=== PATIENT | female | born 1950 | race Caucasian/White ===

== ENCOUNTER → 2016-12-30 | Outpatient (CLI) | payer MEDICARE, OTHER | END | disposition home or self-care (01) | LOC: GMAJ 15:55 | PROVIDERS: ATTEND Family Medicine | DX: M06.9 Rheumatoid arthritis, unspecified (principal) ==

== ENCOUNTER 2017-03-16 09:43 | Emergency (ER) | payer MEDICARE, OTHER ==
[2017-03-16] MEDS ORDERED: methylPREDNISolone SODIUM SUC 125 MG/2 ML VIAL IM ONE (09:56)
[2017-03-16] MEDS ORDERED: DOXYCYCLINE HYCLATE CAP 100 MG CAP PO ONE (09:56)
[2017-03-16 09:59] VITALS: BP 175/76; TEMP 98.7
--- NOTE | 2017-03-16 09:59 | ED.PDOC ---
History of Present Illness - General Chief Complaint: Bite: Animal/Insect/Human Stated Complaint: bee sting Time Seen by Provider: 03/16/17 09:45 Source: patient, RN notes reviewed, Vital Signs reviewed, family Exam Limitations: no limitations - History of Present Illness Initial Comments: Patient was stung by a bee 4 days ago just above her hairline at the center of her forehead. The swelling and itching have gotten progressively worse. Her L upper eyelid is nows very swollen. She is also having pain down behind her left ear and side of neck. No SOB or nausea. Timing/Duration: getting worse - 4 days Severity: moderate Improving Factors: nothing - She has not taken anything for this. Worsening Factors: nothing Associated Symptoms: denies symptoms Allergies/Adverse Reactions: Allergies Erythromycin Allergy (Verified 03/16/17 09:58) Penicillins Allergy (Verified 03/16/17 09:58) Home Medications: Ambulatory Orders Acetamin W/Cod #3 Tab [Tylenol #3 Tab] 1 ea PO Q4-6H PRN #20 tab 09/14/14 Cyclobenzaprine HCl [Flexeril] 10 mg PO TID PRN #10 tab 09/14/14 Effexor 75 mg PO DAILY 09/14/14 Naproxen Sodium [Anaprox Ds] 550 mg PO BID #30 tab 09/14/14 Phentermine HCl 37.5 mg PO DAILY 09/14/14 Sulfasalazine 1,000 mg PO BID 09/14/14 Acetaminophen W/ Codeine [Tylenol W/ CODEINE #3] 1 ea PO Q4-6H PRN #14 Ibuprofen [Motrin] 600 mg PO QID PRN #30 tab 03/23/15 Ondansetron [Zofran Odt] 4 mg PO Q8HR PRN #15 tab 03/23/15 Doxycycline Hyclate 100 mg PO BID #14 tab 03/16/17 Epinephrine [Epipen 2-Sotero] 0.3 mg IJ ONCE PRN #1 pack 03/16/17 Review of Systems - Review of Systems Constitutional: States: no symptoms reported. Denies: chills, fever EENTM: States: see HPI, other - L upper eyelid is swollen. Forehead is swollen and mildly erythematous.. Denies: eye pain, nose congestion, throat swelling, mouth swelling Respiratory: States: no symptoms reported Cardiology: States: no symptoms reported Gastrointestinal/Abdominal: States: no symptoms reported Musculoskeletal: States: neck pain - L side extending from behind ear down, Swollen spot on L neck Skin: States: see HPI, other - Forehead and L upper eyelid are mildly erythematous and swollen. Neurological: States: no symptoms reported Past Medical History (General) - Patient Medical History Hx Diabetes: No - Vaccination History Hx Influenza Vaccination: No - Social History Hx Tobacco Use: No Hx Substance Use Treatment: No Family Medical History - Family History Mother Family History: Unknown Living Status: Unknown Physical Exam - Physical Exam General Appearance: Alert, Comfortable, No apparent distress, Well Developed, Well Groomed, Well Hydrated, Well Nourished Eye Exam: left other - Upper eyelid is very edematous, o/w PERRLA Ears, Nose, Throat: hearing grossly normal, other - Swelling and mild erythema middle of forehead and bridge of nose. Neck: full range of motion, supple, lymphadenopathy (L) - posterior, tender lateral - L side of neck from behind ear down Respiratory: no respiratory distress Neurologic: alert, normal mood/affect, oriented x 3 Skin Exam: rash - Mild erythema forehead, bridge of nose and L eyelid Comments: Vital Signs - 24 hr 03/16/17 09:50 Temperature 98.7 F Pulse Rate [ 55 L pulse ox] Respiratory 20 Rate Blood Pressure 175/76 [Left Arm] O2 Sat by Pulse 99 Oximetry Departure - Departure Clinical Impression: Insect bites Allergic reaction to bee sting Qualifiers: Encounter type: initial encounter Injury intent: accidental or unintentional Qualified Code(s): T63.441A - Toxic effect of venom of bees, accidental ( unintentional), initial encounter Time of Disposition: 10:21 Disposition: Discharge to Home or Self Care Condition: Good Departure Forms: ED Discharge - Pt. Copy, Patient Portal Self Enrollment Instructions: DI for Insect Bites and Stings Diet: resume usual diet Activity: increase activity as tolerated Referrals: Ady Vazquez MD [Primary Care Provider] - 1-2 Weeks Prescriptions: Doxycycline Hyclate 100 mg PO BID #14 tab Epinephrine [Epipen 2-Sotero] 0.3 mg IJ ONCE PRN #1 pack PRN Reason: Allergies Home Medications: Ambulatory Orders Acetamin W/Cod #3 Tab [Tylenol #3 Tab] 1 ea PO Q4-6H PRN #20 tab 09/14/14 Cyclobenzaprine HCl [Flexeril] 10 mg PO TID PRN #10 tab 09/14/14 Effexor 75 mg PO DAILY 09/14/14 Naproxen Sodium [Anaprox Ds] 550 mg PO BID #30 tab 09/14/14 Phentermine HCl 37.5 mg PO DAILY 09/14/14 Sulfasalazine 1,000 mg PO BID 09/14/14 Acetaminophen W/ Codeine [Tylenol W/ CODEINE #3] 1 ea PO Q4-6H PRN #14 Ibuprofen [Motrin] 600 mg PO QID PRN #30 tab 03/23/15 Ondansetron [Zofran Odt] 4 mg PO Q8HR PRN #15 tab 03/23/15 Doxycycline Hyclate 100 mg PO BID #14 tab 03/16/17 Epinephrine [Epipen 2-Sotero] 0.3 mg IJ ONCE PRN #1 pack 03/16/17 Additional Instructions: OTC Benadryl 25-50mg every 6 hours as needed
[2017-03-16 10:38] VITALS: O2SAT 96
== END 2017-03-16 10:38 | disposition home or self-care (01) ==
LOC: ER 09:43
DX: T63.441A Toxic effect of venom of bees, accidental (unintentional), initial encounter (principal); R22.0 Localized swelling, mass and lump, head; Z88.0 Allergy status to penicillin; Z88.3 Allergy status to other anti-infective agents; Z79.899 Other long term (current) drug therapy

== ENCOUNTER → 2017-04-04 | Outpatient (CLI) | payer MEDICARE, OTHER | END | disposition home or self-care (01) | LOC: LAB.O 04-03 15:43 | DX: M06.9 Rheumatoid arthritis, unspecified (principal); Z79.899 Other long term (current) drug therapy; M19.049 Primary osteoarthritis, unspecified hand; Z96.652 Presence of left artificial knee joint ==

== ENCOUNTER → 2017-08-06 | Outpatient (CLI) | payer MEDICARE, OTHER | END | disposition home or self-care (01) | LOC: GMAJ 15:11 | PROVIDERS: ATTEND Family Medicine | DX: M06.9 Rheumatoid arthritis, unspecified (principal); R30.0 Dysuria ==

== ENCOUNTER → 2017-11-26 | Outpatient (CLI) | payer MEDICARE, OTHER | END | disposition home or self-care (01) | LOC: GMAJ 14:32 | PROVIDERS: ATTEND Family Medicine | DX: M06.9 Rheumatoid arthritis, unspecified (principal); R30.0 Dysuria ==

== ENCOUNTER → 2018-02-04 | Outpatient (CLI) | payer OTHER | LOC: LAB.O 10:45 | PROVIDERS: ATTEND Internal Medicine Rheumatology | DX: N39.0 Urinary tract infection, site not specified (principal); M06.9 Rheumatoid arthritis, unspecified; M17.10 Unilateral primary osteoarthritis, unspecified knee; Z96.652 Presence of left artificial knee joint; Z79.899 Other long term (current) drug therapy ==

== ENCOUNTER 2018-03-08 08:59 | Emergency (ER) | payer OTHER ==
[2018-03-08 09:09] VITALS: TEMP 96.4
[2018-03-08] MEDS ORDERED: ONDANSETRON ODT 8 MG TAB SL ONE ×2 (09:14→12:13)
[2018-03-08] MEDS ORDERED: KETOROLAC TROMETHAMINE INJ 30 MG/ML VIAL IV ONE (09:14)
[2018-03-08] MEDS ORDERED: SODIUM CHLORIDE 0.9% 1000ML 1,000 ML IVS ONE ×3 (09:14→12:00)
--- NOTE | 2018-03-08 09:19 | ED.PDOC ---
History of Present Illness - General Chief Complaint: Abdominal Pain Time Seen by Provider: 03/08/18 09:13 Information Source: patient, Vital Signs reviewed, family Exam Limitations: clinical condition - History of Present Illness Initial Comments: Patient comes in with sudden onset of severe LUQ/flank pain with radiation to the back. It started at 6 am after going to bed feeling in her usual health. She has no fever, chlls, cough or cold symptoms. She does not remember if she was able to urinate at 6 am but this feels like when she had a kidney stone years ago. She states nausea and emesis continually since 6 am. She denies any constipation/diarrhea, or change in bowel movments. PMH 1. RA 2. Hx of nephrolithiasis PSH 1. Slenectomy secondary to spherocytosis Abdominal Pain Onset Location: LUQ Pain Radiation: flank, chest Quality: moderate, severe, sharpness Timing/Duration: 1-3 hours Improving Factors: nothing Worsening Factors: nothing Associated Symptoms: denies symptoms Review of Systems - Review of Systems Constitutional: States: no symptoms reported. Denies: chills, fever EENTM: States: no symptoms reported Respiratory: States: no symptoms reported. Denies: cough, short of breath, wheezing, other Cardiology: Denies: chest pain, edema, palpitations, syncope Gastrointestinal/Abdominal: States: see HPI, nausea, vomiting. Denies: constipation, diarrhea Genitourinary: States: see HPI Musculoskeletal: Denies: no symptoms reported Skin: Denies: no symptoms reported Neurological: Denies: no symptoms reported Past Medical History (General) - Patient Medical History Hx Stroke: No Hx Congestive Heart Failure: No Hx Diabetes: No Hx Cancer: Yes - breast Surgical History: tonsillectomy, other - Vaccination History Hx Tetanus, Diphtheria Vaccination: Yes Hx Influenza Vaccination: Yes - 2017 Hx Pneumococcal Vaccination: Yes - Social History Hx Tobacco Use: No Hx Alcohol Use: Yes - socialy Hx Substance Use Treatment: No - Female History Patient : No Family Medical History - Family History Mother Family History: Unknown Living Status: Unknown Physical Exam - Physical Exam General Appearance: Anxious, Obvious distress Eyes, Ears, Nose, Throat Exam: PERRL/EOMI, TMs normal Neck: non-tender, full range of motion, supple Respiratory: chest non-tender, lungs clear, normal breath sounds Cardiovascular/Chest: normal peripheral pulses, regular rate, rhythm, no edema, no gallop, no JVD, tachycardia Peripheral Pulses: No deficit Gastrointestinal/Abdominal: soft, other - tenderness to palpation to the CVA and LUQ with no rebound and no guarding, non distended hypoactive BS Progress - Progress Progress: 03/08/18 10:28 03/08/18 09:14 URINALYSIS Stat 03/08/18 09:46 levoFLOXacin 500MG IV [Levaquin 500MG IV] 500 mg Premix Bag 1 bag IVPB ONCE 03/08/18 09:52 BLOOD CULTURE Stat Laboratory Results WBC 20.8 K/mm3 (4.8-10.8) H* 03/08/18 09:21 RBC 4.34 M/mm3 (4.20-5.40) 03/08/18 09:21 Hgb 15.2 gm/dL (12.0-16.0) 03/08/18 09:21 Hct 41.9 % (36.0-47.0) 03/08/18 09:21 MCV 96.5 fl (81.0-99.0) 03/08/18 09:21 MCH 35.1 pg (27.0-31.0) H 03/08/18 09:21 MCHC 36.4 g/dL (33.0-37.0) 03/08/18 09:21 RDW 13.2 % (11.5-14.5) 03/08/18 09:21 Plt Count 423 K/mm3 (130-400) H 03/08/18 09:21 MPV 9.1 fl (7.40-10.4) 03/08/18 09:21 Absolute Neuts (auto) Not Reportable 03/08/18 09:21 Absolute Lymphs (auto) Not Reportable 03/08/18 09:21 Absolute Monos (auto) Not Reportable 03/08/18 09:21 Absolute Eos (auto) Not Reportable 03/08/18 09:21 Neutrophils % Not Reportable 03/08/18 09:21 Neutrophils % (Manual) 76.0 % 03/08/18 09:21 Lymphocytes % Not Reportable 03/08/18 09:21 Lymphocytes % (Manual) 7.0 % 03/08/18 09:21 Monocytes % Not Reportable 03/08/18 09:21 Monocytes % (Manual) 5.0 % 03/08/18 09:21 Eosinophils % Not Reportable 03/08/18 09:21 Basophils % Not Reportable 03/08/18 09:21 Band Neutrophils 11.0 % 03/08/18 09:21 Eosinophils 1.0 % 03/08/18 09:21 Platelet Estimate Increased (NORMAL) 03/08/18 09:21 Normal RBC Morphology Normal rbc morph 03/08/18 09:21 Sodium 140 mmol/L (135-145) 03/08/18 09:21 Potassium 3.5 mmol/L (3.6-5.0) L 03/08/18 09:21 Chloride 108 mmol/L (101-111) 03/08/18 09:21 Carbon Dioxide 22 mmol/L (21-31) 03/08/18 09:21 Anion Gap 13.5 (12-18) 03/08/18 09:21 BUN 19 mg/dL (7-18) H 03/08/18 09:21 Creatinine 0.74 mg/dL (0.6-1.3) 03/08/18 09:21 BUN/Creatinine Ratio 25.7 (10-20) H 03/08/18 09:21 Random Glucose 149 mg/dL (70-105) H 03/08/18 09:21 Serum Osmolality 284.5 mOsm/L (275-295) 03/08/18 09:21 Lactic Acid 2.0 mmol/L (0.5-2.2) 03/08/18 09:52 Calcium 9.8 mg/dL (8.4-10.2) 03/08/18 09:21 Total Bilirubin 1.2 mg/dL (0.2-1.0) H 03/08/18 09:21 AST 22 IU/L (10-42) 03/08/18 09:21 ALT 15 IU/L (10-60) 03/08/18 09:21 Alkaline Phosphatase 92 IU/L (42-121) 03/08/18 09:21 Serum Total Protein 8.0 gm/dL (6.4-8.2) 03/08/18 09:21 Albumin 4.6 g/dl (3.2-5.5) 03/08/18 09:21 Globulin 3.4 gm/dL (2.3-3.5) 03/08/18 09:21 Albumin/Globulin Ratio 1.4 (1.1-1.9) 03/08/18 09:21 Amylase 116 U/L (28-100) H 03/08/18 09:21 Lipase 33 U/L (22-51) 03/08/18 09:21 - Results/Orders Results/Orders: Patient Name: VESTA WITT Gender: Female Date of : 1950 Referring Physician: LANI SANCHEZ Organization: [facility] Accession Number: [id number] Requested Date: March 08, 2018 09:14 Report Status: Final Requested Procedure: 1 Procedure Description: Abdoment/Pelvis w/o Contrast Modality: CT Findings Reporting MD: Efe Brownlee Fellow MD: Not available Dictation Time: 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 The abdomen and pelvis were scanned utilizing a multidetector helical scanner from the diaphragm to the lesser trochanter. Coronal and sagittal reformations were obtained. This exam was performed according to our departmental dose-optimization program which includes automated exposure control, adjustment of the mA and/or kV according to patient size and/or use of iterative reconstruction technique. DISCUSSION: ABSENCE OF INTRAVENOUS CONTRAST DECREASES SENSITIVITY FOR DETECTION OF FOCAL LESIONS AND VASCULAR PATHOLOGY. LOWER THORAX: Normal. HEPATOBILIARY: No focal hepatic lesions. No biliary ductal dilatation. SPLEEN: Spleen is not visualized. It may be surgically absent. PANCREAS: No focal masses or ductal dilatation. ADRENALS: No adrenal nodules. KIDNEYS/URETERS: There is a 2 mm obstructing stone in the distal left ureter and results in moderate left hydroureteronephrosis. 1 mm nonobstructing stone is seen in the lower pole of the right kidney. PELVIC ORGANS/BLADDER: Unremarkable. PERITONEUM / RETROPERITONEUM: No free air or fluid. LYMPH NODES: No lymphadenopathy. Radiology [employer] [address] [place] [address], [address] [place], [place] T [phone] F [phone] [email or web address] Report exported on Mar 08, 2018 10:29:21 -0500 - Page 2 of 2 VESSELS: Unremarkable. GI TRACT: No distention or wall thickening. BONES AND SOFT TISSUES: No acute osseous abnormality is present. There is trace L4-L5 grade 1 anterolisthesis. Degenerative changes are seen at the bilateral hip joints. IMPRESSION: Approximately 3 mm obstructing stone in the distal left ureter results in moderate left hydroureteronephrosis. Punctate nonobstructing stone in the right kidney. Nonvisualization of the spleen. Correlate for history of splenectomy. Departure - Departure Clinical Impression: Nephrolithiasis Disposition: Transfer to Hospital Departure Forms: ED Discharge - Pt. Copy, Patient Portal Self Enrollment Instructions: DI for Abdominal Pain-Adult Referrals: Ady Vazquez MD [Primary Care Provider] - 1-2 Weeks Comments: accepted by Dr. Brownlee after discussion with Urology. 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
[2018-03-08] MEDS ORDERED: levoFLOXacin 500MG IV 500 MG in PREMIX BAG 1 BAG IVPB ONE (09:46)
[2018-03-08] MEDS ORDERED: levoFLOXacin 500MG IV 100 ML IVPB ONE (09:51)
--- NOTE | 2018-03-08 09:54 | CT ---
Procedure: CT ABDOMEN PELVIS WITHOUT IV CONTRAST Exam Date: 03/08/2018 9:14 AM CDT Ordering Provider: LANI SANCHEZ Clinical Indication: renal colic L side Comparison: None TECHNIQUE: CT of the abdomen and pelvis WITHOUT intravenous contrast. The abdomen and pelvis were scanned utilizing a multidetector helical scanner from the diaphragm to the lesser trochanter. Coronal and sagittal reformations were obtained. This exam was performed according to our departmental dose-optimization program which includes automated exposure control, adjustment of the mA and/or kV according to patient size and/or use of iterative reconstruction technique. DISCUSSION: ABSENCE OF INTRAVENOUS CONTRAST DECREASES SENSITIVITY FOR DETECTION OF FOCAL LESIONS AND VASCULAR PATHOLOGY. LOWER THORAX: Normal. HEPATOBILIARY: No focal hepatic lesions. No biliary ductal dilatation. SPLEEN: Spleen is not visualized. It may be surgically absent. PANCREAS: No focal masses or ductal dilatation. ADRENALS: No adrenal nodules. KIDNEYS/URETERS: There is a 2 mm obstructing stone in the distal left ureter and results in moderate left hydroureteronephrosis. 1 mm nonobstructing stone is seen in the lower pole of the right kidney. PELVIC ORGANS/BLADDER: Unremarkable. PERITONEUM / RETROPERITONEUM: No free air or fluid. LYMPH NODES: No lymphadenopathy. VESSELS: Unremarkable. GI TRACT: No distention or wall thickening. BONES AND SOFT TISSUES: No acute osseous abnormality is present. There is trace L4-L5 grade 1 anterolisthesis. Degenerative changes are seen at the bilateral hip joints. IMPRESSION: Approximately 3 mm obstructing stone in the distal left ureter results in moderate left hydroureteronephrosis. Punctate nonobstructing stone in the right kidney. Nonvisualization of the spleen. Correlate for history of splenectomy. Electronically signed by: Efe Brownlee MD 03/08/2018 9:53 AM CDT
[2018-03-08] MEDS ORDERED: TAMSULOSIN 0.4 MG CAP PO ONE (09:59)
[2018-03-08] MEDS ORDERED: MORPHINE SULFATE INJ 10 MG/ML VIAL IV ONE ×2 (10:08→11:02)
[2018-03-08] MEDS ORDERED: ONDANSETRON INJ 4 MG/2 ML VIAL IV ONE (12:14)
[2018-03-08 12:16] VITALS: BP 136/74; O2SAT 100
== END 2018-03-08 12:25 | disposition short-term general hospital (02) ==
LOC: ER 08:59
DX: N13.2 Hydronephrosis with renal and ureteral calculous obstruction (principal); Z85.3 Personal history of malignant neoplasm of breast; Z87.442 Personal history of urinary calculi
CPT/HCPCS: 36415; 74176; 80053; 82150; 83605; 83690; 85025; 87040; J1885; J1956; J2270; J2405; J7030

== ENCOUNTER → 2018-12-15 | Outpatient (CLI) | payer OTHER | LOC: LAB.O 13:45 | PROVIDERS: ATTEND Internal Medicine Rheumatology | DX: L40.9 Psoriasis, unspecified (principal); M06.9 Rheumatoid arthritis, unspecified; Z79.899 Other long term (current) drug therapy ==

== ENCOUNTER → 2020-03-30 | Outpatient (CLI) | payer OTHER ==
--- NOTE | 2020-03-30 15:38 | CT ---
EXAM DESCRIPTION: Lower Extremity CLINICAL HISTORY: 69 years Female, FEMORAL ACETABULAR IMPINGEMENT COMPARISON: CT abdomen pelvis March 23, 2015 TECHNIQUE: CT of the left hip was performed without IV contrast. This exam was performed according to our departmental dose-optimization program, which includes automated exposure control, adjustment of the mA and/or kV according to patient size and/or use of iterative reconstruction technique. FINDINGS: No acute left hip fracture or malalignment. Advanced left hip joint space narrowing superiorly with subcortical cyst formation in the left acetabular roof and left femoral head. [id number] or near [id number] alignment. The femoral head contour is smooth. Osteophytes arise from the margins of the femoral head at its junction with the femoral neck. Additional degenerative calcification arising from the greater trochanter. The femoral neck contour is physiologic, physiologic curvature of the left femoral head with the left acetabulum. No CT evidence of femoroacetabular impingement. No significant joint effusion. Soft tissues are unremarkable. No left inguinal adenopathy. IMPRESSION: Advanced degenerative changes in the left hip including joint space narrowing with [id number] or near [id number]-bf-dvum alignment and subcortical cyst formation. No CT evidence of femoroacetabular impingement or acute left hip abnormality. Findings are worse from February,. Electronically signed by: Patricio Dimas MD 03/30/2020 3:36 PM CDT
--- NOTE | 2020-03-30 15:45 | CT ---
EXAM DESCRIPTION: Lumbar Spine CLINICAL HISTORY: 69 years, Female, LUMBAR RADICULOPATHY COMPARISON: None TECHNIQUE: CT of the lumbar spine was performed without IV contrast. This exam was performed according to our departmental dose-optimization program, which includes automated exposure control, adjustment of the mA and/or kV according to patient size and/or use of iterative reconstruction technique. FINDINGS: No lumbar vertebral body fracture. Grade 1 anterolisthesis at L4-5 likely related to bilateral facet joint degeneration at the same level. No additional subluxation. The paraspinal and visualized retroperitoneal soft tissues are unremarkable for noncontrast technique. Transitional anatomy at the lumbosacral junction, for the purposes of this exam the designated L5-S1 disc is seen on axial series 4 image 71. There is a slightly hypoplastic disc at S1 to with a more hypoplastic disc present at S2-3. L1-2: Mild concentric disc bulging without facet joint degeneration or stenosis. L2-3: mild concentric disc bulging without facet joint degeneration or stenosis. L3-4: Concentric disc bulging and mild bilateral facet joint degeneration resulting in mild bilateral neural foraminal stenosis. L4-5: Concentric disc bulging with bilateral facet joint degeneration and ligament flavum thickening resulting in mild central canal and at least mild bilateral neural foraminal stenosis. Vacuum disc phenomenon with concentric disc bulging and bilateral facet joint degeneration resulting in mild bilateral neural foraminal stenosis. 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 Electronically signed by: Patricio Dimas MD 03/30/2020 3:43 PM CDT
== END ==
LOC: CT 13:23
PROVIDERS: ATTEND Internal Medicine Rheumatology
DX: M51.9 Unspecified thoracic, thoracolumbar and lumbosacral intervertebral disc disorder (principal); M47.816 Spondylosis without myelopathy or radiculopathy, lumbar region; M51.36 Other intervertebral disc degeneration, lumbar region; M46.96 Unspecified inflammatory spondylopathy, lumbar region; M48.061 Spinal stenosis, lumbar region without neurogenic claudication; M16.12 Unilateral primary osteoarthritis, left hip; M24.152 Other articular cartilage disorders, left hip; M25.859 Other specified joint disorders, unspecified hip